=== PATIENT | male | born 1990 | race Caucasian/White ===

== ENCOUNTER 2017-04-15 18:48 | Inpatient (IN) | payer OTHER ==
[~2017-04-15] VITALS: Ht 177.8 cm; Wt 79.4 kg
[2017-04-15 18:53] VITALS: BP 101/64
--- NOTE | 2017-04-15 19:14 | NUR ---
Patient BIBA ACLS, transferred to bed 7. RN evaluating patient at bedside.
[2017-04-15] MEDS ORDERED: NACL 0.9% 2,000 ML IV ONE (19:15)
[2017-04-15] MEDS ORDERED: NALOXONE 0.4 MG/ML VIAL IVP ONE (19:15)
--- NOTE | 2017-04-15 19:20 | NUR ---
APPROX 24 YO MALE BIB EMS FROM FIELD FOR ALTERED LOC REPSONDS TO PAINFUL STIMULI NO VERBAL RESPONSE, UNKNOW NAME OR AGE. EMS STATES HE WAS FOUND [place] UNRESPONSIVE, ON THE STREET. EMS STATES THEY GAVE 1MG OF NARCAN IM.
--- NOTE | 2017-04-15 20:26 | NUR ---
PT JUST LEFT TO CT VIA [facility], ACCOMPANIED BY STAFF WEAPONS OFFICER
--- NOTE | 2017-04-15 22:34 | NUR ---
Patient will be admitted to care of DR KHAN. Admited to TELE 120A. Will go to room 120A. Belongings list completed. Report to VICTOR HUGO LU .
[2017-04-15] MEDS ORDERED: ALBUTEROL SULFATE/IPRATROPIU 3 ML SOL IH PRN (22:35)
--- NOTE | 2017-04-15 22:45 | NUR ---
ADMITTED THIS 26 YEAR OLD MALE FROM ER PER [facility] WITH CC OF FOUND UNRESPONSIVE ON THE STREET, ASSESSMENT DONE, SB WITH BBB ON TELE, PT WITH EYES CLOSED, SQUIRMS AND MOVED AWAY HIS HEAD WHEN TRYING TO SWAB NARES FOR MRSA, TRYING TO SWAT OUR HANDS WHEN PUTTING TELE MONITOR AND CHECKING VITAL SIGNS, OPENS EYES AND VERBALIZED SWEAR WORDS WHEN WE REMOVED HIS SHIRT AND SHORTS, EYES CLOSED AND NOT ANSWERING WHEN QUESTIONS ASKED, UNABLE TO OBTAIN HISTORY, FOUND WALLET AND RESIDENT CARD, ADMITTING PERSON NOTIFIED, SKIN IS INTACT, SAFETY MEASURES IN PLACE, SIDE RAILS UP AND BED ALARM ON, CALL LIGHT WITHIN REACH.
[2017-04-15] MEDS ORDERED: NACL 0.9% 1,000 ML IV SCH (22:51)
[2017-04-15] MEDS ORDERED: ACETAMINOPHEN 325 MG TAB PO PRN (22:55)
[2017-04-15] MEDS ORDERED: MORPHINE SULFATE 2 MG/ML SYR IVP PRN (22:55)
[2017-04-15] MEDS ORDERED: ZOLPIDEM 5 MG TAB PO PRN (22:55)
[2017-04-15] MEDS ORDERED: LORazepam 2 MG/ML VIAL IVP PRN (22:55)
[2017-04-15] MEDS ORDERED: ONDANSETRON 4 MG/2 ML VIAL IVP PRN (22:55)
[2017-04-15] MEDS ORDERED: HYDROcodone/APAP 5/325 MG 1 TAB TAB PO PRN (22:55)
[2017-04-15 23:00] VITALS: BP 104/69
[2017-04-15] MEDS ORDERED: ALBUTEROL SULFATE/IPRATROPIU 3 ML SOL IH SCH (23:00)
--- NOTE | 2017-04-15 23:07 | NUR ---
CALLED [facility] #[phone] AND TALKED TO NITIN, RELAYED PT'S INFORMATION SUCH NAME AND .
--- NOTE | 2017-04-16 00:15 | NUR ---
STARTED ON IVF WITH NS @ 50ML/H, PT MOANS TO TOUCH, STILL NOT ANSWERING QUESTIONS, SIDE RAILS UP AND BED ALARM ON, MONITORED CLOSELY.
[2017-04-16 04:00] VITALS: BP 99/61
--- NOTE | 2017-04-16 04:00 | NUR ---
PT SLEEPING, VITAL SIGNS TAKEN, SB ON TELE 45 BPM, NO SIGNS OF DISTRESS, PT KICKING WHEN TRYING TO PLACE THE SCD TO ABHAY LOWER LEG, RISK AND BENEFITS EXPLAINED BUT PT KEEPS EYES CLOSED AND NOT SPEAKING, MONITORED CLOSELY.
--- NOTE | 2017-04-16 04:55 | NUR ---
IS ANALYST NAOMIE UNABLE TO DRAW AM LABS, PT REFUSED TO STRAIGHTEN ARMS, RISK AND BENEFITS EXPLAINED BUT PT KEEP HIS EYES CLOSED AND NOT SPEAKING, WILL TRY AGAIN LATER.
--- NOTE | 2017-04-16 06:00 | NUR ---
PT SLEEPING, NO SIGNS OF DISTRESS, IVF INFUSING WELL, SIDE RAILS UP AND BED ALARM ON.
--- NOTE | 2017-04-16 07:20 | NUR ---
PT AWAKE, VERBALLY RESPONSIVE, REPORT GIVEN TO TERRELL RN FOR CONTINUITY OF CARE.
--- NOTE | 2017-04-16 07:21 | NUR ---
PT ASLEEP IN BED, EASILY AROUSABLE TO VERBAL AND TACTILE STIMULI. NO SIGNS OF ACUTE DISTRESS. SKIN IS WARM AND DRY. NO SIGNS OF ANY BOWEL OR BLADDER DISCOMFORT. DENIES OF ANY PAIN AT THIS TIME. ALL NEEDS ATTENDED. SAFETY PRECAUTIONS MAINTAINED. CALL LIGHT WITHIN REACH.
[2017-04-16 08:00] VITALS: BP 109/79
--- NOTE | 2017-04-16 08:02 | NUR ---
PT REQUESTED TO SIGN NISH, DR HAMILTON ON PT'S ROOM AND IS AWARE. RISKS AND BENEFITS EXPLAINED. PT VERBALIZED UNDERSTANDING. SIGNED AMA.
--- NOTE | 2017-04-16 08:40 | NUR ---
PT AWAKE ALERT AND ORIENTED, NO SIGNS OF ACUTE DISTRESS. PT SIGNED AMA, IV LINE AND WRIST BANDS REMOVED, TELE LEADS REMOVED. PERSONAL BELONGINGS WITH PT UPON LEAVING UNIT. CHARGE NURSE RN FACULTY AND MD IS AWARE.
--- NOTE | 2017-04-16 09:19 | NUR ---
FAXED INITIAL REVIEW TO [facility] [phone] PHONE YOLANDA [phone] [id number]
== END 2017-04-16 08:40 | disposition left against medical advice (07) | DRG 52 ==
LOC: MED 18:48 → MTU 21:31 → EDBD 21:31
PROVIDERS: ADMIT Family Medicine; ATTEND Family Medicine
DX: G92 Toxic encephalopathy (principal); M62.82 Rhabdomyolysis; E04.1 Nontoxic single thyroid nodule; F15.10 Other stimulant abuse, uncomplicated; F13.10 Sedative, hypnotic or anxiolytic abuse, uncomplicated; E83.41 Hypermagnesemia; Z53.21 Procedure and treatment not carried out due to patient leaving prior to being seen by health care provider; Z72.89 Other problems related to lifestyle; Z56.0 Unemployment, unspecified; Z91.19 Patient's noncompliance with other medical treatment and regimen